=== PATIENT | male | born 1955 | race Caucasian/White ===

== ENCOUNTER 2016-12-31 14:14 | Outpatient (CLI) | payer BC | END 2016-12-31 14:15 | disposition home or self-care (01) | DX: N40.1 Benign prostatic hyperplasia with lower urinary tract symptoms (principal); R33.9 Retention of urine, unspecified; R35.0 Frequency of micturition; R35.1 Nocturia; N41.9 Inflammatory disease of prostate, unspecified ==

== ENCOUNTER 2017-07-20 08:18 | Outpatient (CLI) | payer BC ==
[2017-07-20 19:44] LABS: ALBUMIN/GLOBULIN RATIO 1.4 (1.0-2.2); BILIRUBIN,TOTAL 0.7 mg/dL (0.2-1.0); CALCIUM 9.4 mg/dL (8.5-10.3); CREATININE 0.9 mg/dL (0.6-1.2); POTASSIUM 3.8 mmol/L (3.5-5.0); TOTAL PROTEIN 7.8 g/dL (6.7-8.2)
[2017-07-20 19:52] LABS: PSA FREE 0.73 ng/mL (0.16-2.81)
[2017-07-20 19:53] LABS: BASOPHILS % (AUTO) 0.4 %; EOSINOPHILS # (AUTO) 0.2 10^3/uL (0.0-0.7); EOSINOPHILS % (AUTO) 3.1 %; HCT - HEMATOCRIT 41.2 % (42.0-52.0); HGB - HEMOGLOBIN 14.1 g/dL (14.0-18.0); LYMPHOCYTES % (AUTO) 26.1 %; MEAN CORPUSCULAR HEMOGLOBIN 29.2 pg (27.0-31.0); MEAN CORPUSCULAR HGB CONC 34.2 g/dL (32.0-36.0); MEAN CORPUSCULAR VOLUME 85.3 fL (80.0-94.0); MEAN PLATELET VOLUME 9.6 fL (7.4-11.4); MONOCYTES # (AUTO) 0.5 10^3/uL (0.0-1.0); MONOCYTES % (AUTO) 6.4 %; NEUTROPHILS # (AUTO) 4.9 10^3/uL (1.5-6.6); NUCLEATED RED BLOOD CELLS AUTO 0.1 /100WBC; PSA TOTAL 7.63 ng/mL (0.000-2.000); RED BLOOD COUNT 4.83 10^6/uL (4.70-6.10); RED CELL DISTRIBUTION WIDTH 13.4 % (12.0-15.0); UNCORRECTED WHITE BLOOD COUNT 7.7 x10^3/uL; WHITE BLOOD COUNT 7.7 x10^3/uL (4.8-10.8)
== END 2017-07-20 08:19 | disposition home or self-care (01) ==
LOC: LAB.WCP 08:18
PROVIDERS: ATTEND Physician Assistant Medical
DX: R31.0 Gross hematuria (principal)
CPT/HCPCS: 36415; 80053; 84154; 85025; 87086

== ENCOUNTER 2017-07-26 07:14 | Outpatient (CLI) | payer BC ==
[2017-07-26] MEDS ORDERED: IOPAMIDOL-300 100 ML VIAL ONE (07:59)
[2017-07-26] MEDS ORDERED: IOPAMIDOL-300 100 ML VIAL IVP ONE (08:40)
--- NOTE | 2017-07-26 11:45 | CT Report ---
CT IVP: 07/26/2017 CLINICAL INDICATION: Gross hematuria. TECHNIQUE: Axial CT images of the abdomen and pelvis were obtained prior to and following 100 mL of I sovue-300 intravenously, using split bolus technique. No previous CT is available for comparison. FINDINGS: Limited evaluation of the lung bases is unremarkable. ABDOMEN: On the unenhanced images, there is no evidence of nephrolithiasis or hydronephrosis. The kid neys demonstrate symmetric uptake and excretion of contrast. Left peripelvic cysts are present. No so lid parenchymal lesion or collecting system lesion is identified. The liver, spleen, pancreas and adr enal glands appear unremarkable. A small splenule is noted in the splenic hilum. No bowel dilatation, free gas, or free fluid is present. No abdominal adenopathy is seen. PELVIS: The appendix is seen in the right lower quadrant, and is normal in caliber. Sigmoid diverticu losis is present, without CT evidence of diverticulitis. There is a possible papillary projection david sing from the bladder wall at the dome of the prostate. Correlation with cystoscopy is recommended. T he distal ureters appear unremarkable. The osseous structures demonstrate mild degenerative changes. IMPRESSION: POSSIBLE PAPILLARY PROJECTION IN THE LUMEN OF THE BLADDER VERSUS ASYMMETRIC ENLARGEMENT OF THE PROSTATE PROJECTING INTO THE BLADDER. CORRELATION WITH CYSTOSCOPY IS RECOMMENDED. NO EVIDENCE OF UPPER TRACT LESION. In accordance with CT protocol optimization, one or more of the following dose reduction techniques w ere utilized for this exam: automated exposure control, adjustment of mA and/or KV based on patient size, or use of iterative reconstructive technique. JOB #: [id number] EXT JOB #:[id number]
== END 2017-07-26 07:15 | disposition home or self-care (01) ==
LOC: DI 07:14
PROVIDERS: ATTEND Physician Assistant Medical
DX: R31.0 Gross hematuria (principal); R93.41 Abnormal radiologic findings on diagnostic imaging of renal pelvis, ureter, or bladder
CPT/HCPCS: 74178; Q9967

== ENCOUNTER 2017-10-13 10:29 | Emergency (ER) | payer BC ==
[2017-10-13 10:48] VITALS: BP 140/79
== END 2017-10-13 11:01 | disposition left against medical advice (07) ==
LOC: ED 10:29
DX: Z53.21 Procedure and treatment not carried out due to patient leaving prior to being seen by health care provider (principal)

== ENCOUNTER 2020-01-14 04:22 | Emergency (ER) | payer MEDICARE, OTHER ==
--- NOTE | 2020-01-14 04:50 | ED Physician Documentation ---
PD HPI CHEST PAIN - Stated complaint Stated Complaint: CP/SOA - Chief complaint Chief Complaint: Cardiac - History obtained from History obtained from: Patient - History of Present Illness Timing - onset: How many weeks ago (1) Timing - onset during: Exertion Timing - duration: Minutes Timing - details: Abrupt onset, Intermittant Pain level max: 5 Pain level now: 0 Quality: Pressure, Dull, Pain Location: Substernal Radiation: Left upper extremity, Right upper extremity Improved by: Rest Worsened by: Exertion Associated symptoms: No: Shortness of air, Diaphoresis, Nausea, Vomiting, Feeling faint / dizzy, General Weakness, Palpitations, Cough Similar symptoms before: Has not had sx before Recently seen: Not recently seen - Additional information Additional information: c/o one week of exertional chest pain, midline, that radiates down back of both arms, mostly LUE. pain is only on exertion, lasts 15-20 minutes and is relieved with rest. He has noticed this pain is increasingly frequent with decreasing amounts of exertion, and tonight he was having chest pain simply when walking to the bathroom from his bedroom. Review of Systems Constitutional: reports: Reviewed and negative Eyes: reports: Reviewed and negative Ears: reports: Reviewed and negative Nose: reports: Reviewed and negative Throat: reports: Reviewed and negative Cardiac: reports: Chest pain / pressure. denies: Palpitations, Pedal edema, Calf pain Respiratory: reports: Dyspnea (mild dyspnea during some episodes of chest pain, although he says he feels he is just breathing faster as a means of distracting himself from the pain). denies: Cough GI: reports: Reviewed and negative : denies: Dysuria, Frequency Skin: reports: Reviewed and negative Musculoskeletal: reports: Reviewed and negative Neurologic: reports: Reviewed and negative PD PAST MEDICAL HISTORY - Past Medical History Cardiovascular: Hypertension Endocrine/Autoimmune: Type 2 diabetes GI: Hemorrhoids - Past Surgical History Past Surgical History: Yes - Present Medications Home Medications: Ambulatory Orders Medication Instructions Recorded Confirmed Lisinopril [Qbrelis] 01/14/20 Tamsulosin [Flomax] 01/14/20 - Allergies Allergies/Adverse Reactions: Allergies Allergy/AdvReac Type Severity Reaction Status Date / Time Sulfa (Sulfonamide Allergy Unknown Verified 01/14/20 04:31 Antibiotics) - Social History Does the pt smoke?: No Smoking Status: Never smoker Does the pt drink ETOH?: No Does the pt have substance abuse?: No - Immunizations Immunizations are current?: Yes - POLST Patient has POLST: No PD ED PE NORMAL - Vitals Vital signs reviewed: Yes - General General: Alert and oriented X 3, No acute distress, Well developed/nourished - HEENT HEENT: Moist mucous membranes - Neck Neck: Supple, no meningeal sign, No JVD - Cardiac Cardiac: RRR, No murmur, No gallop, No rub - Respiratory Respiratory: No respiratory distress, Clear bilaterally - Abdomen Abdomen: Soft, Non tender - Derm Derm: Normal color, Warm and dry - Extremities Extremities: No edema - Neuro Neuro: Alert and oriented X 3 Results - Vitals Vitals: Vital Signs - 24 hr 01/14/20 01/14/20 01/14/20 04:31 04:51 05:14 Temperature Heart Rate 81 78 75 Respiratory 20 18 18 Rate Blood Pressure 177/100 H 159/86 H 158/85 H O2 Saturation 100 100 94 01/14/20 01/14/20 01/14/20 05:34 06:00 06:40 Temperature 36.3 C L Heart Rate 75 84 Respiratory 18 18 Rate Blood Pressure 155/83 H 163/88 H O2 Saturation 94 93 01/14/20 01/14/20 01/14/20 07:30 08:30 10:00 Temperature Heart Rate 86 94 91 Respiratory 16 18 16 Rate Blood Pressure 173/93 H 171/102 H 168/105 H O2 Saturation 97 93 95 Oxygen O2 Source Room air - EKG (time done) No standard instances Rate: Rate (enter#) (77) Rhythm: NSR Hoven: Normal Intervals: Normal PA QRS: Normal Ischemia: ST depression (V3-V6, I, aVL) - Labs Labs: Laboratory Tests 01/14/20 01/14/20 01/14/20 04:54 04:54 04:54 WBC 8.2 RBC 5.18 Hgb 14.7 Hct 44.7 MCV 86.3 MCH 28.4 MCHC 32.9 RDW 12.8 Plt Count 200 MPV 10.0 Neut # (Auto) 5.5 Lymph # (Auto) 2.0 Bullock # (Auto) 0.5 Eos # (Auto) 0.2 Baso # (Auto) 0.0 Absolute Nucleated RBC 0.00 Nucleated RBC % 0.0 Sodium 137 Potassium 3.7 Chloride 101 Carbon Dioxide 24 Anion Gap 12.0 BUN 25 H Creatinine 1.1 Estimated GFR (MDRD) 67 L Glucose 146 H Calcium 9.4 Total Bilirubin 0.9 AST 30 ALT 42 Alkaline Phosphatase 76 Troponin I High Sens 54.7 H* Total Protein 8.5 H Albumin 4.9 Globulin 3.6 Albumin/Globulin Ratio 1.4 Lipase 34 01/14/20 07:13 WBC RBC Hgb Hct MCV MCH MCHC RDW Plt Count MPV Neut # (Auto) Lymph # (Auto) Bullock # (Auto) Eos # (Auto) Baso # (Auto) Absolute Nucleated RBC Nucleated RBC % Sodium Potassium Chloride Carbon Dioxide Anion Gap BUN Creatinine Estimated GFR (MDRD) Glucose Calcium Total Bilirubin AST ALT Alkaline Phosphatase Troponin I High Sens 108.5 H* Total Protein Albumin Globulin Albumin/Globulin Ratio Lipase - Rads (name of study) chest xray Radiology: Prelim report reviewed, See rad report PD MEDICAL DECISION MAKING - ED course Complexity details: reviewed results, re-evaluated patient, considered differential, d/w patient ED course: HPI is s/o new-onset exertional angina that is steadily progressing in frequency with less provocation to symptom onset. EKG has mild (1mm) ST depressions in V3-V6, I, aVL. Initial high sensitivity troponin is 54.7. I recommended to him that I contact cardiology for consideration of transfer. He asked about other options and tells me he actually almost didn't come to the hospital and was going to wait to see his doctor in the outpatient setting. After further discussion, and considering that he is asymptomatic at rest and without ST elevations on EKG, we were able to agree on holding him for a 2-hour repeat troponin. This result was 108.5. He is agreeable to transfer, requests [facility]. D/W Dr. Monsivais, dormitory counselor at [facility], accepts patient for transfer. Departure - Departure Disposition: 02 Transfer Acute Care Hosp Clinical Impression: NSTEMI (non-ST elevated myocardial infarction) Chest pain Qualifiers: Chest pain type: unspecified Qualified Code(s): R07.9 - Chest pain, unspecified Condition: Stable
[2020-01-14 05:10] LABS: BASOPHILS % (AUTO) 0.4 %; EOSINOPHILS # (AUTO) 0.2 10^3/uL (0.0-0.7); EOSINOPHILS % (AUTO) 2.6 %; HGB - HEMOGLOBIN 14.7 g/dL (14.0-18.0); LYMPHOCYTES % (AUTO) 23.9 %; MEAN CORPUSCULAR HEMOGLOBIN 28.4 pg (27.0-31.0); MEAN CORPUSCULAR HGB CONC 32.9 g/dL (32.0-36.0); MEAN CORPUSCULAR VOLUME 86.3 fL (80.0-94.0); MONOCYTES # (AUTO) 0.5 10^3/uL (0.0-1.0); MONOCYTES % (AUTO) 6.1 %; NEUTROPHILS # (AUTO) 5.5 10^3/uL (1.5-6.6); NEUTROPHILS % (AUTO) 66.6 %; PLT - PLATELET COUNT 200 10^3/uL (130-450); RED BLOOD COUNT 5.18 10^6/uL (4.70-6.10); RED CELL DISTRIBUTION WIDTH 12.8 % (12.0-15.0); WHITE BLOOD COUNT 8.2 x10^3/uL (4.8-10.8)
[2020-01-14 05:24] LABS: ALBUMIN 4.9 g/dL (3.2-5.5); ALBUMIN/GLOBULIN RATIO 1.4 (1.0-2.2); BILIRUBIN,TOTAL 0.9 mg/dL (0.2-1.0); CALCIUM 9.4 mg/dL (8.5-10.3); CREATININE 1.1 mg/dL (0.6-1.2); TOTAL PROTEIN 8.5 g/dL (6.7-8.2)
--- NOTE | 2020-01-14 06:02 | XRAY Report ---
Reason: Chest pain Procedure Date: 01/14/2020 Accession Number: [id number] / [id number] Procedure: XR - Chest 1 View X-Ray CPT Code: 56344 Final Report FULL RESULT: EXAM: CHEST RADIOGRAPHY EXAM DATE: 01/14/2020 05:42 AM. CLINICAL HISTORY: Chest pain. COMPARISON: CHEST 2 VIEW PA/LAT 02/18/2017 10:12 AM. TECHNIQUE: 1 view. FINDINGS: Atherosclerotic plaque calcifications are seen in the aorta. The heart size is normal. Minimal left basilar atelectasis is seen. The right lung is clear. There is no pleural effusion or pneumothorax. IMPRESSION: Minimal left basilar atelectasis. RADIA
[2020-01-14] MEDS ORDERED: NITROGLYCERIN 2% PASTE TOP STA (08:11)
[2020-01-14] MEDS ORDERED: ASPIRIN CHEW 81 MG TABLET PO STA (08:18)
[2020-01-14 10:00] VITALS: BP 168/105
== END 2020-01-14 10:25 | disposition short-term general hospital (02) ==
LOC: ED 04:22
DX: I21.4 Non-ST elevation (NSTEMI) myocardial infarction (principal); I10 Essential (primary) hypertension; E11.9 Type 2 diabetes mellitus without complications
CPT/HCPCS: 36415; 71045; 80053; 83690; 84484; 85025; 93005; 99285; A9270

== ENCOUNTER 2020-01-14 10:32 | Outpatient (CLI) | payer MEDICARE, OTHER | END 2020-01-14 10:33 | disposition short-term general hospital (02) | LOC: EMS 10:32 | PROVIDERS: ATTEND Surgery | DX: R07.9 Chest pain, unspecified (principal); R06.02 Shortness of breath | CPT/HCPCS: A0425; A0426 ==

== ENCOUNTER 2021-03-01 10:30 | Emergency (ER) | payer MEDICARE, OTHER ==
--- NOTE | 2021-03-01 13:31 | ED Physician Documentation ---
History of Present Illness - Stated complaint Stated Complaint: CONGESTION - Chief complaint Chief Complaint: Resp - History obtained from History obtained from: Patient - Additonal information Additional information: 65-year-old man with past medical history of coronary artery disease status post stents, hyperlipidemia presents with sore throat and congestion over the past couple days, requesting a Covid test. Patient has a nonproductive cough but denies shortness of breath, chest pain, abdominal pain, nausea vomiting diarrhea or fever chills. He is planning on traveling and just wanted to get tested "to be safe". Review of Systems Ten Systems: 10 systems reviewed and negative Constitutional: denies: Fever, Chills Cardiac: denies: Chest pain / pressure Respiratory: reports: Cough. denies: Dyspnea PD PAST MEDICAL HISTORY - Past Medical History Past Medical History: Yes Cardiovascular: Hypertension Endocrine/Autoimmune: Type 2 diabetes GI: Hemorrhoids - Past Surgical History Past Surgical History: Yes Cardiovascular: Coronary stent - Present Medications Home Medications: Ambulatory Orders Medication Instructions Recorded Confirmed Tamsulosin [Flomax] 0.4 mg PO DAILY 01/14/20 03/01/21 Atorvastatin [Lipitor] 40 mg PO DAILY 03/01/21 03/01/21 - Allergies Allergies/Adverse Reactions: Allergies Allergy/AdvReac Type Severity Reaction Status Date / Time Sulfa (Sulfonamide Allergy Unknown Verified 01/14/20 04:31 Antibiotics) - Social History Does the pt smoke?: No Smoking Status: Never smoker Does the pt drink ETOH?: No Does the pt have substance abuse?: No - Immunizations Immunizations are current?: Yes - POLST Patient has POLST: No PD ED PE NORMAL - Vitals Vital signs reviewed: Yes - General General: Alert and oriented X 3, No acute distress, Well developed/nourished - HEENT HEENT: Atraumatic, PERRL, EOMI, Moist mucous membranes, Other (mild nasal congestion) - Neck Neck: Supple, no meningeal sign - Cardiac Cardiac: RRR - Respiratory Respiratory: No respiratory distress, Clear bilaterally - Abdomen Abdomen: Non tender, Non distended - Derm Derm: Warm and dry - Extremities Extremities: No deformity - Neuro Neuro: Alert and oriented X 3 Results - Vitals Vitals: Vital Signs - 24 hr 03/01/21 03/01/21 03/01/21 10:47 11:38 12:38 Temperature 36.8 C 36.9 C Heart Rate 72 66 67 Respiratory 16 18 12 Rate Blood Pressure 136/65 H 153/79 H 152/98 H O2 Saturation 100 100 99 03/01/21 13:40 Temperature 36.7 C Heart Rate 67 Respiratory 12 Rate Blood Pressure 146/94 H O2 Saturation 100 Oxygen O2 Source Room air PD MEDICAL DECISION MAKING - ED course ED course: 65-year-old man presents requesting a Covid test. We are able to swab him and he will follow up with his results. Patient advised to quarantine until that time. Return precautions given. He will follow up with his primary doctor Departure - Departure Disposition: Home, Self Care Clinical Impression: Sinus congestion, Cough Condition: Good Instructions: ED Viral Syndrome Comments: You are seen in the emergency department for a Covid test. Please quarantine at home until your results come back. Return to the emergency department if you experience any new or worsening symptoms including shortness of breath or have other concerns. Follow-up with your primary doctor. Discharge Date/Time: 03/01/21 13:45
[2021-03-01 13:40] VITALS: BP 146/94
== END 2021-03-01 13:45 | disposition home or self-care (01) ==
LOC: ED 10:30
DX: R09.81 Nasal congestion (principal); R05 Cough; Z20.822 Contact with and (suspected) exposure to COVID-19; I10 Essential (primary) hypertension; E11.9 Type 2 diabetes mellitus without complications; E78.5 Hyperlipidemia, unspecified; I25.10 Atherosclerotic heart disease of native coronary artery without angina pectoris; Z95.5 Presence of coronary angioplasty implant and graft
CPT/HCPCS: 99282; 99283; U0004